=== PATIENT | female | born 1945 | race Caucasian/White ===

== ENCOUNTER → 2017-09-06 | Outpatient (CLI) | payer OTHER ==
[~2017-09-06] MED LIST: CLOPIDOGREL BIS75 MG PO; NEXIUM40 MG/PACK PO; OSEL75CA PO; TUSSIN15 MG/5 M1; ZANTAC300 MG PO; ZITHROMAX500 MG PO; ZYRTEC10 MG PO
== END | disposition home or self-care (01) ==
LOC: TOM 11:44
DX: D33.3 Benign neoplasm of cranial nerves (principal); H70.12 Chronic mastoiditis, left ear; H69.82 Other specified disorders of Eustachian tube, left ear

== ENCOUNTER 2017-09-13 11:11 | Outpatient (CLI) | payer OTHER | END 2017-09-13 11:17 | disposition home or self-care (01) | LOC: LAB 11:11 | DX: H90.42 Sensorineural hearing loss, unilateral, left ear, with unrestricted hearing on the contralateral side (principal); Z51.81 Encounter for therapeutic drug level monitoring ==

== ENCOUNTER 2017-10-23 10:13 | Outpatient (CLI) | payer OTHER | END 2017-10-23 10:20 | disposition home or self-care (01) | LOC: NUCLEAR 10:13 | DX: H70.12 Chronic mastoiditis, left ear (principal) | CPT/HCPCS: 78315; A9503 ==

== ENCOUNTER 2017-12-31 11:40 | Outpatient (CLI) | payer OTHER | END 2017-12-31 11:51 | disposition home or self-care (01) | LOC: MAMO-SONO 11:40 | DX: Z12.31 Encounter for screening mammogram for malignant neoplasm of breast (principal); Z87.898 Personal history of other specified conditions; N60.11 Diffuse cystic mastopathy of right breast; N60.12 Diffuse cystic mastopathy of left breast ==

== ENCOUNTER 2018-01-10 10:22 | Outpatient (CLI) | payer OTHER | END 2018-01-10 12:32 | disposition home or self-care (01) | LOC: NUCLEAR 10:22 | DX: M81.0 Age-related osteoporosis without current pathological fracture (principal) ==

== ENCOUNTER → 2018-01-30 08:28 | Outpatient (CLI) | payer OTHER | END | disposition home or self-care (01) | LOC: LAB 08:28 | DX: E11.9 Type 2 diabetes mellitus without complications (principal); E78.2 Mixed hyperlipidemia; R94.5 Abnormal results of liver function studies; N39.0 Urinary tract infection, site not specified ==

== ENCOUNTER → 2018-06-06 | Outpatient (CLI) | payer OTHER | END | disposition home or self-care (01) | LOC: NUCLEAR 10:59 | DX: I87.2 Venous insufficiency (chronic) (peripheral) (principal); I73.9 Peripheral vascular disease, unspecified ==

== ENCOUNTER → 2018-10-10 07:55 | Outpatient (CLI) | payer OTHER | END | disposition home or self-care (01) | LOC: LAB 07:55 | DX: D50.8 Other iron deficiency anemias (principal); D51.8 Other vitamin B12 deficiency anemias; I73.89 Other specified peripheral vascular diseases; D55.0 Anemia due to glucose-6-phosphate dehydrogenase [G6PD] deficiency; D51.0 Vitamin B12 deficiency anemia due to intrinsic factor deficiency; D51.1 Vitamin B12 deficiency anemia due to selective vitamin B12 malabsorption with proteinuria ==

== ENCOUNTER 2019-01-06 08:27 | Outpatient (CLI) | payer OTHER | END 2019-01-06 08:38 | disposition home or self-care (01) | LOC: NUCLEAR 08:27 | DX: I73.9 Peripheral vascular disease, unspecified (principal) ==

== ENCOUNTER → 2019-02-18 | Outpatient (CLI) | payer OTHER | END | disposition home or self-care (01) | LOC: RAD 09:52 | DX: I73.89 Other specified peripheral vascular diseases (principal); D51.3 Other dietary vitamin B12 deficiency anemia; M72.2 Plantar fascial fibromatosis ==

== ENCOUNTER 2020-02-25 13:04 | Outpatient (CLI) | payer OTHER | END 2020-02-25 13:23 | disposition home or self-care (01) | LOC: MAMO-SONO 13:04 | PROVIDERS: ATTEND Specialist | DX: Z12.31 Encounter for screening mammogram for malignant neoplasm of breast (principal); N60.11 Diffuse cystic mastopathy of right breast; N60.12 Diffuse cystic mastopathy of left breast ==

== ENCOUNTER → 2020-06-09 10:09 | Outpatient (CLI) | payer OTHER | END | disposition home or self-care (01) | LOC: LAB 10:09 | PROVIDERS: ATTEND Internal Medicine Hematology & Oncology | DX: D50.8 Other iron deficiency anemias (principal); I10 Essential (primary) hypertension; D51.1 Vitamin B12 deficiency anemia due to selective vitamin B12 malabsorption with proteinuria; E72.11 Homocystinuria; E72.12 Methylenetetrahydrofolate reductase deficiency; D51.3 Other dietary vitamin B12 deficiency anemia; M72.2 Plantar fascial fibromatosis; I73.89 Other specified peripheral vascular diseases ==

== ENCOUNTER 2020-12-28 14:43 | Outpatient (CLI) | payer OTHER | END 2020-12-28 14:47 | disposition home or self-care (01) | LOC: RAD 14:43 | PROVIDERS: ATTEND Physical Medicine & Rehabilitation | DX: M54.16 Radiculopathy, lumbar region (principal); M54.5 Low back pain ==

== ENCOUNTER → 2021-04-19 | Outpatient (CLI) | payer OTHER | END | disposition home or self-care (01) | LOC: PPH VACUNA 07:00 | PROVIDERS: ATTEND Emergency Medicine Pediatric Emergency Medicine | DX: Z23 Encounter for immunization (principal) ==

== ENCOUNTER 2021-09-25 08:00 | Outpatient (CLI) | payer OTHER | END 2021-09-25 08:30 | disposition home or self-care (01) | LOC: PPH VACUNA 08:00 | PROVIDERS: ATTEND Emergency Medicine Pediatric Emergency Medicine | DX: Z23 Encounter for immunization (principal); Z71.85 Encounter for immunization safety counseling ==

== ENCOUNTER 2021-10-13 08:36 | Outpatient (CLI) | payer OTHER | END 2021-10-13 08:41 | disposition home or self-care (01) | LOC: LAB 08:36 | PROVIDERS: ATTEND Internal Medicine Hematology & Oncology | DX: D68.61 Antiphospholipid syndrome (principal); E72.12 Methylenetetrahydrofolate reductase deficiency; D51.3 Other dietary vitamin B12 deficiency anemia; M72.2 Plantar fascial fibromatosis; I73.9 Peripheral vascular disease, unspecified; I10 Essential (primary) hypertension; D50.8 Other iron deficiency anemias; R74.02 Elevation of levels of lactic acid dehydrogenase [LDH]; K76.89 Other specified diseases of liver; D51.8 Other vitamin B12 deficiency anemias ==

== ENCOUNTER 2021-11-09 13:20 | Outpatient (CLI) | payer OTHER | END 2021-11-09 13:21 | disposition home or self-care (01) | LOC: NUCLEAR 13:20 | PROVIDERS: ATTEND Internal Medicine Hematology & Oncology | DX: M81.0 Age-related osteoporosis without current pathological fracture (principal); E72.11 Homocystinuria; M72.2 Plantar fascial fibromatosis; I73.9 Peripheral vascular disease, unspecified; D51.3 Other dietary vitamin B12 deficiency anemia; E72.12 Methylenetetrahydrofolate reductase deficiency ==

== ENCOUNTER 2023-08-19 09:53 | Emergency (ER) | payer OTHER ==
[~2023-08-19] VITALS: Ht 157.5 cm; Wt 64.4 kg
== END 2023-08-19 11:47 | disposition home or self-care (01) ==
LOC: ER 09:54
DX: R53.81 Other malaise (principal); R00.2 Palpitations